=== PATIENT | female | born 1950 | race Caucasian/White ===

== ENCOUNTER 2024-12-13 20:47 | Outpatient (CLI) | payer MEDICARE, BC, SELFPAY | END 2024-12-13 20:48 | disposition home or self-care (01) | LOC: SLEEP 20:53 | PROVIDERS: PCP Internal Medicine; Visit Provider Internal Medicine | DX: G47.33 Obstructive sleep apnea (adult) (pediatric) (principal) | CPT/HCPCS: 95811 ==